=== PATIENT | male | born 1955 | race Caucasian/White ===

== ENCOUNTER 2022-04-03 21:14 | Emergency (ER) | payer MEDICARE, BC ==
[~2022-04-03] VITALS: Ht 182.9 cm; Wt 83.1 kg
[2022-04-04] MEDS ORDERED: ondansetron/PF 4mg/2ml inj IV ONE (00:30)
[2022-04-04] MEDS ORDERED: glucagon, human recombinant 1mg kit IV ONE (00:30)
[2022-04-04] MEDS ORDERED: normal saline 1000ml 1,000 ML IV ONE (00:30)
[2022-04-04] MEDS ORDERED: MIDAZolam 1 MG/ML 5ML VIAL ONE (03:17)
[2022-04-04] MEDS ORDERED: FENTANYL CITRATE/PF 50 MCG/1 ML VIAL ONE (03:17)
[2022-04-04] MEDS ORDERED: LIDOcaine Viscous 15ml cup ONE (03:17)
[2022-04-04 03:25] VITALS: BP 154/92
[2022-04-04 03:45] VITALS: BP 130/66
[2022-04-04 03:55] VITALS: BP 121/61
[2022-04-04 04:05] VITALS: BP 111/55
[2022-04-04 04:10] VITALS: BP 122/65
[2022-04-04 04:15] VITALS: BP 136/78
== END 2022-04-04 05:05 | disposition home or self-care (01) ==
LOC: ER 21:17
DX: T18.128A Food in esophagus causing other injury, initial encounter (principal); Z98.890 Other specified postprocedural states; Z95.0 Presence of cardiac pacemaker; Z79.899 Other long term (current) drug therapy; X58.XXXA Exposure to other specified factors, initial encounter; Y93.89 Activity, other specified; Y92.89 Other specified places as the place of occurrence of the external cause; Y99.8 Other external cause status
CPT/HCPCS: 43247; 43248; 71045; 96361; 96374; 96375; 99152; 99285; C1769; J1610; J2250; J2405; J3010; J7030; Z7512; A4620